=== PATIENT | male | born 1950 | race Caucasian/White ===

== ENCOUNTER 2017-04-19 07:10 | Outpatient (CLI) | payer MEDICARE, OTHER ==
[~2017-04-19] VITALS: Ht 180.3 cm; Wt 82.5 kg
[2017-04-19] VITALS (24 sets, daily range): BP systolic 140–214; BP diastolic 77–99; PULSE 56–171; RESP 10–16; TEMP 96.2–97.7; O2SAT 91–98; Ht 180.3 cm; Wt 82.5 kg
[~2017-04-19 07:10] MED LIST: ASCO500T9 PO; ASPI-611 PO; BISO5TAB13 PO; DILT240C61 PO; ENAL20TA76 PO; HYDR-2164 PO; IBUP200T53 PO; LIDOCAINE 1% (10mg/ml) 2ml SDV INJ ONE; METF500T4 PO; NIAC100T3 PO; OMEG1CAP6 PO; POTA99TA16 PO; SIMV40TA5 PO
[2017-04-19 08:00] LABS: ANION GAP 15 MEQ/L (5-15); BUN/CREATININE RATIO 22 RATIO (6-26); CALCIUM 9.3 MG/DL (8.4-10.2); CHLORIDE 100 MEQ/L (98-107); CO2 - CARBON DIOXIDE 31 MEQ/L (22-30); GLOMERULAR FILTRATION RATE 75; GLUCOSE 145 MG/DL (75-110); POTASSIUM 3.2 MEQ/L (3.6-5); SODIUM 146 MEQ/L (134-144)
[2017-04-19] MEDS: LR 1,000 ML IV SCH (09:09)
--- NOTE | 2017-04-19 09:13 | DI ---
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 Technique: Appropriate patient identification was obtained. The risks, benefits, and alternatives of the procedure were discussed. Correct laterality was confirmed by the patient. All patient questions were answered, and the patient provided her verbal consent to proceed. Tc-99m sulfur colloid was injected intradermally in four perilesional locations in the left foot. A total of approximately 0.9 mCi of Tc-99m sulfur colloid was injected. Anterior planar and transmission images were subsequently obtained. Findings: The intradermal injection sites are visualized as intense focal uptake in the left foot region. Two sentinel lymph nodes are seen in the left inguinal area. No other tracer avid nodes identified. Impression: Technically successful injections for the purpose of lymphoscintigraphy. Left inguinal sentinel lymph nodes. .
--- NOTE | 2017-04-19 10:34 | ANESPREOP ---
Anesthesia Record Date and Time DATE: 04/19/17 TIME: 10:32 Proposed Surgical Procedure LT ING SENTINEL NODE DISSECTION Allergies: Coded Allergies: No Known Allergies (Unverified , 03/06/14) Ht/Wt/BMI Height: 5 ' 11.00 " Weight: 82.500 kg BMI: 25.4 kg/m2 Vital Signs Date Time Temp Pulse Resp B/P Pulse Ox O2 Delivery O2 Flow Rate FiO2 04/19/17 07:32 97.7 56 15 214/99 96 Room Air Medications Inpatient Medications Current Medications Medications (Trade) Dose Ordered Sig/Brandon Start Time Stop Time Status Last Admin Dose Admin Lactated Ringer's (Lactated Ringers) 1,000 ml @ 50 mls/hr Q20H 04/19/17 07:00 04/19/17 09:09 50 MLS/HR Ascorbic Acid (Vitamin C) 500 Mg Tablet, 1 TAB PO DAILY, (Reported) Last Taken: on 04/18/17 Aspirin (Aspirin) 81 Mg Tablet, 81 MG PO HS, ( Reported) Last Taken: on 04/17/17 Bisoprolol Fumarate (Bisoprolol Fumarate) 5 Mg Tablet, 5 MG PO DAILY, (Reported) Last Taken: on 04/18/17 Diltiazem Hcl (Diltiazem Er) 240 Mg Cap.sr.24h, 240 MG PO BID, (Reported) Last Taken: on 04/18/17 Enalapril Maleate (Enalapril Maleate) 20 Mg Tablet , 20 MG PO BID, (Reported) Last Taken: on 04/18/17 Hydrochlorothiazide (Hydrochlorothiazide) 25 Mg Tablet, 25 MG PO DAILY, (Reported) Last Taken: on 04/18/17 Ibuprofen (Ibuprofen) 200 Mg Tablet, 400 MG PO PRN, (Reported) Last Taken: on 04/17/17 Metformin HCl (Metformin HCl) 500 Mg Tablet, 500 MG PO BIDWM, (Reported) Take one tablet, by mouth, 2 times a day with Meals. Last Taken: on 04/18/17 Niacin (Niacin) 100 Mg Tablet, 1 TAB PO WB, ( Reported) Last Taken: on 04/18/17 Haworth-3 Fatty Acids (Fish Oil Concentrate) 1 Cap Capsule, 1 CAP PO DAILY, (Reported) Last Taken: on 04/18/17 Potassium Gluconate (Potassium) 99 Mg Tablet, 99 MG PO DAILY, (Reported) Last Taken: on 04/18/17 Simvastatin (Simvastatin) 40 Mg Tablet, 40 MG PO HS , (Reported) Take 1 tablet, by mouth, 1 time a day (at BEDTIME). Last Taken: on 04/18/17 Currently on Beta Edmund: Yes Beta Edmund not given due to: Taken Day Prior to Surg Medical/Surgical History Anesthesia PMH: Reports: *Diabetes (TYPE 2 PER H&P), *Hypertension (PER H&P), Denies: *Angina, *Dyspnea, *MN, Anesthesia Reactions (NO AIRWAY ISSUES), Arthritis, Asthma, Blood Transfusion Reac, CHF, COPD, CVA/Stroke/TIA, Cancer, Clotting Problems, Deep Vein Thrombosis, Glaucoma, Hepatitis, Hiatal Hernia, Malignant Hyperthermia, Pneumonia, Reflux, Renal Disease, Seizures, Sleep Apnea , Thyroid Disease, Tuberculosis Smoking Status: Never smoker Has pt. smoked today?: No Use Chewing Tobacco?: No Second Hand Exposure: No Substance Use Type: does not use Alcohol Intake: none Past Surgical History Orthopedic Surgeries: No Abdominal Surgeries: No Genitourinary Surgeries: No Cardiac Surgeries: No Endocrine Surgeries: No Reproductive Surgeries: No Neurological Surgeries: No Ear Surgeries: No Nose Surgeries: No Throat Surgeries: No Other Surgeries: Yes - SPLIT-SKIN GRAFT TO OPEN TRAUMATIC WOUND R. LOWER LEG, COLONOSCOPY PER H&P Anesthesia Adverse Reactions: FOUND none Family Hx of Anesthesia Advers: none Hx of Motion Sickness: No Pertinent Findings Laboratory Tests 04/19/17 07:36 Physical Exam Respiratory: Lungs clear Cardiovascular: FOUND Regular rate, rhythm Airway Assessment Mallampati Score: II TMD: 2 Fingerbreadths Neck Extension: Good Overall Assessment: No Airway Concerns ASA: 2 Plan Anesthesia Plan: LMA Discussion Discussed risks/options/alternatives of anesthesia and questions answered. Patient consents. Nursing pain assessment noted. Attestation Statement Prior to the delivery of any anesthetic medication, I examined the patient, developed the plan, obtained the patient's consent and discussed the risk and benefits of the procedure with the patient/guardian. LOGAN MENG April 19, 2017 10:34
[2017-04-19] MEDS ORDERED: LIDOCAINE 2% (20mg/ml) 5ml PF SDV ONE (12:55)
[2017-04-19] MEDS ORDERED: PROPOFOL 200mg 20 ML IV ONE (12:55)
[2017-04-19] MEDS ORDERED: FENTANYL 100mcg/2ml INJECTION ONE ×2 (12:58→15:22)
[2017-04-19] MEDS ORDERED: MIDAZOLAM 2mg/2ml INJECTION ONE (12:58)
[2017-04-19] MEDS ORDERED: GLYCOPYRROLATE 0.4mg/2ml INJECTION ONE (14:16)
[2017-04-19] MEDS ORDERED: ISOSULFAN BLUE 5ml INJECTION SQ ONE (14:32)
[2017-04-19] MEDS ORDERED: MINERAL OIL 10 ML VIAL TOP ONE (14:32)
--- NOTE | 2017-04-19 15:46 | GSPOSTPROC ---
Immediate Operative Note DATE: 04/19/17 TIME: 15:43 Postop Diagnosis: possible melanoma at left foot Surgical Procedure: Other (Excision of possible melanoma of left foot) Surgeon: Holland ASA: 2 TSERING TREVINO MD April 19, 2017 15:46
[2017-04-19] MEDS ORDERED: MORPHINE 10mg/ml vl INJECTION IV PRN (16:00)
[2017-04-19] MEDS ORDERED: ONDANSETRON 4mg/2ml INJECTION IV PRN (16:00)
[2017-04-19] MEDS ORDERED: OXYCODONE I.R. 5 MG TABLET PO PRN (16:00)
[2017-04-19] MEDS ORDERED: ACETAMINOPHEN 500 MG TABLET PO PRN (16:00)
[2017-04-19] MEDS ORDERED: PROMETHAZINE 25 MG INJECTION IV PRN (16:00)
--- NOTE | 2017-04-19 17:10 | NUR ---
Admit Pt transferred stood and transferred self from cart to bed. Post op VS started at this time. present at time of transfer. Pt denies nausea, rates pain a 4/10. This RN encouraged PO intake at this time. Side rails up X2, call light w/in reach, bed alarm on.
--- NOTE | 2017-04-19 18:37 | NUR ---
Summary Pt A&OX3. Dressings to surgical incisions c/d/i. Pt on RA. present in room. Pt has voided since being to the floor. Side rails up X2, call light w/in reach, bed alarm on.
[2017-04-19] MEDS: IBUPROFEN 200 MG TABLET PO PRN ×2 (18:42→22:16)
--- NOTE | 2017-04-19 18:42 | NUR ---
Pain Pt rated pain a 4/10, 2 PRN Motrin given per Pt request at this time.
--- NOTE | 2017-04-19 20:03 | ANESPO ---
Post-Op Note Date 04/19/17 Time: 16:40 Status Pt Participated in Evaluation: Pt participated in person Vital Signs Date Time Temp Pulse Resp B/P Pulse Ox O2 Delivery O2 Flow Rate FiO2 04/19/17 19:16 77 166/79 96 Room Air 04/19/17 17:37 16 04/19/17 17:16 96.2 Respiratory Function: Airway patent Cardiovascular Function: Regular pulse Mental Status: Alert/oriented Pain Level Intensity: 2 Hydration: Taking po fluids Complications during Recovery None apparent Follow-Up Instructions Instructions Per Surgeon EMIL RODRÍGUEZ CRNA April 19, 2017 20:03
[2017-04-19] MEDS ORDERED: SIMVASTATIN 40 MG TABLET PO SCH (22:00)
[2017-04-19] MEDS: DILTIAZEM CD 240mg CAP (QD) PO SCH (22:11)
[2017-04-19] MEDS: ENALAPRIL 20 MG TABLET PO SCH (22:11)
[2017-04-20] MEDS: LR 1,000 ML IV SCH (03:00)
[2017-04-20 05:38] VITALS: BP 161/82; PULSE 63; RESP 18; TEMP 96.8; O2SAT 97
--- NOTE | 2017-04-20 06:04 | NUR ---
SHIFT SUMMARY PT IS ALERT AND ORIENTED X3, VITAL SIGNS ARE STABLE ON ROOM AIR. DENIES C/P,N/V AND SOA. PT HAS USED THE URINAL WITH THE ASSISTANCE OF HIS THROUGHOUT THE NIGHT. PAIN HAS BEEN CONTROLLED WELL WITH IBUPROFEN, PT STATES THAT HE WOULD LIKE TO AVOID USING PRN NARCOTIC PAIN MEDICATIONS. DISCHARGE PACKET IS PRINTED AND ATTACHED TO THE PT CHART IN PREPARATION FOR DISMISSAL THIS AM. PT HAS SLEPT WELL THROUGHOUT THE NIGHT. WILL CONTINUE TO MONITOR.
[2017-04-20 07:26] VITALS: BP 168/80; PULSE 56; RESP 16; TEMP 98.1; O2SAT 96
[2017-04-20 08:00] VITALS: PULSE 64; RESP 18
[2017-04-20] MEDS ORDERED: HYDROCHLOROTHIAZIDE 25 MG TABLET PO SCH (08:00)
[2017-04-20] MEDS ORDERED: NIACIN 100 MG TABLET PO SCH (08:00)
[2017-04-20 09:00] VITALS: PULSE 64
[2017-04-20] MEDS ORDERED: ASCORBIC ACID 500 MG TABLET PO SCH (09:00)
[2017-04-20] MEDS ORDERED: BISOPROLOL 5 MG TABLET PO SCH (09:00)
--- NOTE | 2017-04-20 09:03 | OPNOTEF ---
DATE OF OPERATION 04/19/2017 PREOPERATIVE DIAGNOSIS Status post local excision of melanocytic tumor of uncertain malignant potential from dorsal surface of left foot on 10/13/2016. POSTOPERATIVE DIAGNOSIS Status post local excision of melanocytic tumor of uncertain malignant potential from dorsal surface of left foot on 10/13/2016. OPERATION Left inguinal sentinel lymph node dissection followed by wide excision of a melanocytic tumor of uncertain malignant potential local excision site at the dorsal surface of the left foot with closure of the excision site with application of a split-thickness skin graft and application of a short-leg splint. SURGEON Dr. Lino ANESTHESIA General ASA CLASS 2 FINDINGS This patient had previously undergone local excision of a melanocytic tumor of uncertain malignant potential from the dorsal surface of the left foot on 10/13/2016. The patient was taken to the imaging department at [facility] preoperatively where technetium-99m sulfur colloid radioisotope was injected at the melanocytic tumor of uncertain malignant potential local excision site at the dorsal surface of the left foot. The patient had then undergone preoperative lymphoscintigraphy which showed that there were two sentinel lymph nodes at the left infrainguinal area. There were no sentinel lymph nodes at the popliteal area. There were no sentinel lymph nodes anywhere at the area between the left foot and the inguinal area. There were no sentinel lymph nodes anywhere except for the two sentinel lymph nodes at the left inguinal area located inferior to the inguinal ligament. At the time of operation, the patient was found to have two sentinel lymph nodes at the left inguinal area inferior to the inguinal ligament, which correlated with the location demonstrated on preoperative lymphoscintigraphy. The two lymph nodes found at the time of operation were in the same area as the two lymph nodes demonstrated by preoperative lymphoscintigraphy. The two sentinel lymph nodes were removed. The ex vivo peak count for the first sentinel lymph node was 178 counts per second. The ex vivo 10-second count for the first sentinel lymph node was 1,360 counts per second. The ex vivo peak count for the second sentinel lymph node was 233 counts per second. The ex vivo 10- second count for the second sentinel lymph node was 2,057 counts per second. Each of these two lymph nodes was also stained blue with Lymphazurin 1% (isosulfan blue) dye which had been injected at the melanocytic tumor of uncertain malignant potential local excision site at the dorsal surface of the left foot preoperatively. The patient did have a 3 cm long longitudinally oriented scar at the dorsal surface of left foot from the local excision procedure which had been performed on 10/13/2016. DESCRIPTION OF OPERATION The patient was placed in supine position on the operating table. General anesthesia with an LMA was satisfactorily induced. A skin marker pen was used to kailee out a circular incision around the area of skin and subcutaneous tissue which were going to be resected at the dorsal surface of the left foot. The incision was made so that at least a 1 cm margin of skin and subcutaneous tissue would be removed from around all sides of the site where the melanocytic tumor of uncertain malignant potential skin lesion had been located at the dorsal surface of left foot. The incision line for the wide local excision at this area was marked on the skin at this time with a skin marker pen. Between 1 and 2 ml of Lymphazurin 1% (isosulfan blue) dye was then injected intradermally at the melanocytic tumor of uncertain malignant potential local excision site at the dorsal surface of the left foot. This dye was injected at the skin which would later be resected. This area was then massaged for a brief period of time. The entire left leg as well as the left inguinal area superior and inferior to the inguinal ligament were prepped and draped in routine sterile fashion. The anterior surface of the right thigh was also prepped and draped in routine sterile fashion. Attention was directed to the left inguinal area. The entire left inguinal area was examined with the Navigator Gamma Positioning System. The lymphatic mapping gamma probe was placed in a sterile sleeve. The probe was used to examine the left inguinal area. An area of markedly increased radioactivity was identified at the mid left inguinal canal level inferior to the left inguinal ligament. An obliquely oriented incision was made inferior to the left inguinal ligament and parallel to the left inguinal ligament overlying the area of increased radioactivity. The incision was extended down through the underlying subcutaneous tissue. As this was done, a lymph node which was stained blue with Lymphazurin 1% (isosulfan blue) dye was identified. Examination of this lymph node with the lymphatic mapping gamma probe showed that it had increased radioactivity. This lymph node was sharply dissected out and excised. The ex vivo peak count and the ex vivo 10-second count for this lymph node was determined with results as described above. This lymph node was designated as sentinel lymph node #1 and submitted for routine study by the pathologist. Frozen section examination of the specimen was not requested today. The remaining wound was examined further with the lymphatic mapping gamma probe. There was one remaining area of increased radioactivity present. Dissection was extended down to this area of increased radioactivity with guidance with the lymphatic mapping gamma probe. This did lead to the exposure of another blue-colored lymph node. This lymph node was also stained blue with Lymphazurin 1% ( isosulfan blue) dye. This lymph node was also sharply dissected out and excised at this time. The ex vivo peak count and the ex vivo 10-second count for the second lymph node was also determined with results as described above. The second lymph node was designated as sentinel lymph node #2 and submitted for routine study by the pathologist. The wound was again examined with the lymphatic mapping gamma probe. The entire left inguinal area was examined further with the lymphatic mapping gamma probe. No other areas of increased radioactivity were identified anywhere. Hemostasis was satisfactory at this wound located inferior to the left inguinal ligament. This wound was then closed. The subcutaneous tissue at the wound was closed in two layers with a continuous simple adex-hgi-qyfy stitch using 3-0 Vicryl suture. Skin margins at this left inguinal wound were then closed with skin paulo. No drains were placed to this left inguinal wound. Attention was then directed to performing wider excision of the melanocytic tumor of uncertain malignant potential local excision site at the dorsal surface of the left foot. A circular incision line had previously been marked out on the skin at this area at the dorsal surface of the left foot with skin marker pen. A circular piece of skin and subcutaneous tissue was sharply excised at this area. The superior margin of this piece of skin and subcutaneous tissue was tagged with a long 3-0 Vicryl suture. The lateral margin of this specimen of skin and subcutaneous tissue was tagged with a short 3-0 Vicryl suture. This specimen of full-thickness skin and subcutaneous tissue was then submitted for routine study by the pathologist. The open wound which remained at the dorsal surface of the left foot was measured at this time and was found to be 3 cm in diameter. The wound was 3 cm wide in a wbela-nu-nrvy direction and 3 cm long in a ydisscpq-hq-lhvjypns direction. Hemostasis was achieved at this wound by clamping some bleeding points and ligating them with 4-0 Vicryl suture. The open wound had dimensions of 3 cm x 3 cm. A donor site for the split-thickness skin graft was selected at the anterior surface of the right thigh. Mineral oil was applied to the donor site. A Esha dermatome was then used to obtain a split-thickness skin graft from the donor site. The skin graft was 0.015 inches thick. The split-thickness skin graft was then applied to the excision site at the dorsal surface of left foot. The skin graft was pie-crusted. The skin graft was secured to the margins of the excision site at the dorsal surface of left foot with a series of interrupted horizontal mattress stitches using 4-0 Vicryl suture. These stitches were all left long around the margin of the wound for use in tying down over a tie-over stent dressing. Xeroform gauze was placed over the split-thickness skin graft recipient site. The 4-0 Vicryl stitches which had been left long were then tied down over this Xeroform gauze to form a tie-over stent dressing. A piece of Xeroform gauze was placed over the split-thickness skin graft donor site at the anterior surface of the right thigh. Some 4 x 4 gauze was placed over the Xeroform gauze. Microfoam tape was then placed over the 4 x 4 gauze dressings. A 5-inch wide, Ortho-Glass brand posterior short-leg splint was then applied to the left foot, ankle and lower leg. A 4-inch Kwesi wrap and a 6-inch Kwesi wrap were used to hold the splint in place and molded it into a proper configuration at the left foot, ankle and lower leg. Sterile dressings were applied to the wound at the left inguinal area. The patient did tolerate the operation well. Sponge, needle, instrument counts were all correct at the end of the operation. The patient was transferred from the operating room to the recovery room in satisfactory condition. ADAM
[2017-04-20] MEDS: DILTIAZEM CD 240mg CAP (QD) PO SCH (09:11)
[2017-04-20] MEDS: ENALAPRIL 20 MG TABLET PO SCH (09:11)
--- NOTE | 2017-04-20 09:45 | NUR ---
Discharge Pt discharged at this time via wheelchair through the ER entrance by DESTINEE Babcock. IV cather removed prior to. VS stable on RA. Discharge packet and instructions gone over with Pt. This RN discussed medications, activity, diet, restrictions and follow up appt with Pt.
--- NOTE | 2017-04-20 10:25 | PNF ---
DATE 04/20/2017 POSTOP DAY #1 HISTORY Doing well. The patient is having minimal pain at his wounds. He is eating well. He has been able to ambulate with crutches this morning. He has received instruction from physical therapy regarding ambulating with crutches. EXAM VITAL SIGNS: Temperature is 98.1 degrees oral. Pulse is 56. Respiratory rate is 16. Blood pressure is 168/80. Oxygen saturation is 96% on room air. EXTREMITIES: The wound at the left thigh looks good. No drainage from the wound. No sign of any wound healing problems at this area. The splint and Kwesi wraps are all in place at the wound at the left foot, ankle and lower leg. The split-thickness skin graft donor site at the right thigh looks good. IMPRESSION Doing well following left inguinal sentinel lymph node dissection, excision of local excision site at dorsal surface of left foot and application of split-thickness skin graft to excision site wound at dorsal surface of left foot on 04/19/2017. TREATMENT Dressings were changed at the split-thickness skin graft donor site wound at the right thigh. PLAN Dismiss patient from [facility] today. ADAM
--- NOTE | 2017-04-21 14:10 | NUR ---
CM CM LVM
--- NOTE | 2017-04-22 15:03 | NUR ---
CM CM LVM
--- NOTE | 2017-04-25 10:53 | NUR ---
CM CM LVM
== END 2017-04-20 09:45 | disposition home or self-care (01) ==
LOC: IMA 07:10 → SRG 16:44 → IMA 04-20 09:45
PROVIDERS: ATTEND Surgery
DX: D23.72 Other benign neoplasm of skin of left lower limb, including hip (principal); E11.9 Type 2 diabetes mellitus without complications; Z79.84 Long term (current) use of oral hypoglycemic drugs
CPT/HCPCS: 11423; 15120; 36415; 38500; 38900; 78195; 80048; 82948; 88305; 88307; 88341; 88342; 97161; A6222; A6223; A9270; A9541; G8978; G8979; G8980; J2250; J2704; J3010; J7120